=== PATIENT | female | born 1965 | race Caucasian/White ===

== ENCOUNTER 2018-02-04 22:55 | Emergency (ER) | payer OTHER ==
[2018-02-04] MEDS ORDERED: MORPHINE 4 MG/ML SYR ONE (23:33)
[2018-02-04] MEDS ORDERED: DEXAMETHASONE 4 MG/ML VIAL ONE (23:33)
[2018-02-04] MEDS ORDERED: ONDANSETRON 4 MG/2 ML VIAL ONE (23:34)
[2018-02-04] MEDS ORDERED: KETOROLAC 30 MG/ML INJ ONE (23:34)
[2018-02-05] MEDS ORDERED: DIAZEPAM 10 MG/2 ML INJ SYRINGE ONE (00:51)
--- NOTE | 2018-02-05 00:54 | EDPHYS ---
Physician Documentation [facility] Name: Nany Kelley Age: 52 yrs Sex: Female : 1965 Arrival Date: 02/04/2018 Time: 22:58 Bed 14 Private MD: Jeremiah Bhagat ED Physician Dom Rueda HPI: 02/04 23:18 This 52 yrs old Female presents to ER via Ambulatory with complaints of Back jmm Pain. 23:18 The patient presents with pain that is acute. The symptoms are located in the low back. jmm Onset: The symptoms/episode began/occurred acutely, just prior to arrival. The pain does not radiate. Associated signs and symptoms: Pertinent negatives: abdominal pain, dysuria, fever, hematuria, incontinence, nausea, numbness, tingling, urinary retention, vomiting, weakness. This is a 52 year old female with a history of htn that presents to the ED with lower back pain while sweeping earlier this evening. Denies leg weakness, incontinence, dysuria, fever, numbness of legs. . Historical: - Allergies: 23:09 PENICILLINS; wh - Home Meds: 23:09 atenolol 25 mg Oral tab 2 tabs 2 times per day [Active]; hydrochlorothiazide 25 mg Oral wh tab 1 tab once daily [Active]; - PMHx: 23:09 Hypertension; wh - Immunization history:: Adult Immunizations up to date. - Social history:: Smoking status: Patient uses tobacco products, unknown amount. - Ebola Screening: : Patient negative for fever greater than or equal to 101.5 degrees Fahrenheit, and additional compatible Ebola Virus Disease symptoms Patient denies exposure to infectious person. ROS: 23:18 Constitutional: Negative for fever, chills, and weight loss, Cardiovascular: Negative jmm for chest pain, palpitations, and edema, Respiratory: Negative for shortness of breath, cough, wheezing, and pleuritic chest pain, Abdomen/GI: Negative for abdominal pain, nausea, vomiting, diarrhea, and constipation. 23:18 Back: Positive for pain with movement. 23:18 All other systems are negative. Exam: 23:18 Head/Face: atraumatic. jmm 23:18 Eyes: EOMI, no conjunctival erythema appreciated ENT: Moist Mucus Membranes Neck: Trachea midline, Supple Chest/axilla: Normal chest wall appearance and motion. Cardiovascular: Regular rate and rhythm. No edema appreciated Respiratory: Normal respirations, no respiratory distress appreciated Abdomen/GI: Non distended, soft 23:18 Constitutional: The patient appears in no acute distress, alert, awake. 23:18 ENT: 23:18 Back: pain, that is moderate, ROM is painful, vertebral tenderness, is not appreciated. 23:18 Musculoskeletal/extremity: ROM: intact in all extremities. 23:18 Skin: Appearance: Color: normal in color. 23:18 Neuro: Orientation: is normal, Mentation: is normal, Memory: is normal. 23:18 Psych: Behavior/mood is pleasant, cooperative. Vital Signs: 23:07 BP 139 / 108; Pulse 86; Resp 18; Temp 98.1; Pulse Ox 98% on R/A; 02/05 00:33 BP 107 / 75; Pulse 82; Resp 16; Pulse Ox 98% on R/A; jb MDM: 02/04 23:15 Patient medically screened. [facility] 02/05 00:53 Data reviewed: vital signs, nurses notes, radiologic studies, plain films. Data [facility] interpreted: Pulse oximetry: on room air is 98 %. Interpretation: normal. Counseling: I had a detailed discussion with the patient and/or guardian regarding: the historical points, exam findings, and any diagnostic results supporting the discharge/admit diagnosis, lab results, radiology results, the need for outpatient follow up, to return to the emergency department if symptoms worsen or persist or if there are any questions or concerns that arise at home. Response to treatment: the patient's symptoms have markedly improved after treatment. 02/04 23:21 Order name: Lumbar Spine (3 Views) XRAY [facility] 02/04 23:13 Order name: Saline Lock; Complete Time: 23:21 [facility] Administered Medications: 02/04 23:38 Drug: Zofran 4 mg Route: IVP; Site: right antecubital; jb4 02/05 00:07 Follow up: Response: No adverse reaction; Nausea is decreased [facility] 02/04 23:40 Drug: morphine 4 mg Route: IVP; Site: right antecubital; jb4 02/05 00:08 Follow up: Response: No adverse reaction; Pain is decreased [facility] 02/04 23:41 Drug: Ketorolac 30 mg Route: IVP; Site: right antecubital; jb4 02/05 00:07 Follow up: Response: No adverse reaction; Pain is decreased jb4 02/04 23:42 Drug: Decadron - Dexamethasone 10 mg Route: IVP; Site: right antecubital; jb4 02/05 00:06 Follow up: Response: No adverse reaction jb4 00:54 Drug: Valium 2 mg Route: IVP; Site: right forearm; jb4 00:54 Follow up: Response: No adverse reaction; Pain is decreased jb4 Disposition: 05:40 Co-signature as Attending Physician, Dmo Rueda MD I agree with the assessment and tw4 plan of care. Disposition: 02/05/18 00:53 Discharged to Home. Impression: Sprain of ligaments of lumbar spine. - Condition is Stable. - Discharge Instructions: Back Pain, Adult. - Prescriptions for Ultracet 37.5- 325 mg Oral Tablet - take 1 tablet by ORAL route every 6 hours - for up to 5 days; do not exceed 8 tablets per day.; 12 tablet. Zanaflex 4 mg Oral Tablet - take 1 tablet by ORAL route every 8 hours As needed; 20 tablet. - Medication Reconciliation Form, Thank You Letter, Antibiotic Education, Prescription Opioid Use form. - Follow up: Private Physician; When: 2 - 3 days; Reason: Recheck today's complaints, Continuance of care, Re-evaluation by your physician. Signatures: Dispatcher [employer] EDMS Niko Omalley PA PA jmm Bryson, James, RN RN jb4 Hannah Garg Terrence, MD MD tw4 Corrections: (The following items were deleted from the chart) 00:59 00:53 02/05/2018 00:53 Discharged to Home. Impression: Sprain of ligaments of lumbar jb4 spine. Condition is Stable. Forms are Medication Reconciliation Form, Thank You Letter, Antibiotic Education, Prescription Opioid Use. Follow up: Private Physician; When: 2 - 3 days; Reason: Recheck today's complaints, Continuance of care, Re-evaluation by your physician. efren
--- NOTE | 2018-02-05 00:54 | ER ---
Nurse's Notes [facility] Name: Nany Kelley Age: 52 yrs Sex: Female : 1965 Arrival Date: 02/04/2018 Time: 22:58 Bed 14 Private MD: Jeremiah Bhagat Diagnosis: Sprain of ligaments of lumbar spine Presentation: 02/04 23:05 Presenting complaint: Patient states: states C/O back pain 12/26. Pt states she was wh sweeping the floor and turned the wrong way, and felt throbbing and stabbing pain to the lower back. Denies any tingling sensation, loss of sensations or ROM. Transition of care: patient was not received from another setting of care. Onset of symptoms was February 04, 2018. Risk Assessment: Do you want to hurt yourself or someone else? Patient reports no desire to harm self or others. Initial Sepsis Screen: Does the patient meet any 2 criteria? No. Patient's initial sepsis screen is negative. Does the patient have a suspected source of infection? No. Patient's initial sepsis screen is negative. Care prior to arrival: None. 23:05 Method Of Arrival: Ambulatory 23:05 Acuity: CARLOS 3 Historical: - Allergies: 23:09 PENICILLINS; - Home Meds: 23:09 atenolol 25 mg Oral tab 2 tabs 2 times per day [Active]; hydrochlorothiazide 25 mg Oral tab 1 tab once daily [Active]; - PMHx: 23:09 Hypertension; - Immunization history:: Adult Immunizations up to date. - Social history:: Smoking status: Patient uses tobacco products, unknown amount. - Ebola Screening: : Patient negative for fever greater than or equal to 101.5 degrees Fahrenheit, and additional compatible Ebola Virus Disease symptoms Patient denies exposure to infectious person. Screenin:07 Abuse screen: Denies threats or abuse. Denies injuries from another. Abuse screen: wh Denies threats or abuse. Denies injuries from another. Nutritional screening: No deficits noted. Tuberculosis screening: No symptoms or risk factors identified. Fall Risk Fall in past 12 months (25 points). Assessment: 23:04 General: Appears in no apparent distress. comfortable, Behavior is calm, cooperative, jb4 appropriate for age. Pain: Complains of pain in low back area Pain does not radiate. Pain currently is 10 out of 10 on a pain scale. Quality of pain is described as stabbing, throbbing. Neuro: Level of Consciousness is awake, alert, obeys commands, Oriented to person, place, time, situation. Cardiovascular: Patient's skin is warm and dry. Respiratory: Airway is patent Respiratory effort is even, unlabored, Respiratory pattern is regular, symmetrical. GI: No signs and/or symptoms were reported involving the gastrointestinal system. : No signs and/or symptoms were reported regarding the genitourinary system. EENT: No signs and/or symptoms were reported regarding the EENT system. Derm: Skin is intact, Skin is pink, warm \T\ dry. Musculoskeletal: Circulation, motion, and sensation intact. Reports pain in low back area Denies denies numbness or weakness. 02/05 00:33 Reassessment: Patient appears in no apparent distress at this time. Patient and/or jb4 family updated on plan of care and expected duration. Pain level reassessed. Patient is alert, oriented x 3, equal unlabored respirations, skin warm/dry/pink. Vital Signs: 02/04 23:07 BP 139 / 108; Pulse 86; Resp 18; Temp 98.1; Pulse Ox 98% on R/A; 02/05 00:33 BP 107 / 75; Pulse 82; Resp 16; Pulse Ox 98% on R/A; jb4 ED Course: 02/04 22:58 Patient arrived in ED. am2 22:59 Jeremiah Bhagat is Private Physician. am2 22:59 Jamie Wasserman, RN is Primary Nurse. [facility] 23:06 Niko Omalley PA is PHCP. [facility] 23:06 Dom Rueda MD is Attending Physician. [facility] 23:07 Triage completed. 23:07 Arm band placed on right wrist. 23:09 Patient has correct armband on for positive identification. Bed in low position. Call light in reach. Side rails up X 1. Pulse ox on. NIBP on. 23:10 Initial lab(s) drawn, by me. Inserted saline lock: 20 gauge in right forearm, using jb4 aseptic technique. Blood collected. 23:56 Patient moved to radiology via wheelchair. az 23:56 X-ray completed. Patient tolerated procedure well. az 23:56 Patient moved back from radiology. az 02/05 00:57 No provider procedures requiring assistance completed. IV discontinued, intact, jb4 bleeding controlled. Administered Medications: 02/04 23:38 Drug: Zofran 4 mg Route: IVP; Site: right antecubital; jb4 02/05 00:07 Follow up: Response: No adverse reaction; Nausea is decreased jb4 02/04 23:40 Drug: morphine 4 mg Route: IVP; Site: right antecubital; jb4 02/05 00:08 Follow up: Response: No adverse reaction; Pain is decreased jb4 02/04 23:41 Drug: Ketorolac 30 mg Route: IVP; Site: right antecubital; jb4 02/05 00:07 Follow up: Response: No adverse reaction; Pain is decreased jb4 02/04 23:42 Drug: Decadron - Dexamethasone 10 mg Route: IVP; Site: right antecubital; jb4 02/05 00:06 Follow up: Response: No adverse reaction jb4 00:54 Drug: Valium 2 mg Route: IVP; Site: right forearm; jb4 00:54 Follow up: Response: No adverse reaction; Pain is decreased jb4 Outcome: 00:53 Discharge ordered by . efren 00:58 Discharged to home ambulatory. jb4 00:58 Condition: stable 00:58 Discharge instructions given to patient, family, Instructed on discharge instructions, follow up and referral plans. medication usage, Demonstrated understanding of instructions, follow-up care, medications, Prescriptions given X 2. 00:59 Patient left the ED. jb4 Signatures: Niko Omalley PA PA jmm Bryson, James, RODNEY RN jb4 Brenda Maloney Hannah Abreu Emma Mcgarry [place] Corrections: (The following items were deleted from the chart) 00:38 00:33 BP 98 / 72; Pulse 82bpm; Resp 16bpm; Pulse Ox 98% RA; jb4 jb4 00:47 02/04 23:05 Acuity: CARLOS 4 [facility]
--- NOTE | 2018-02-05 08:39 | RAD REPORT ---
EXAM DESCRIPTION: RAD - Lumbar Spine 3 Views - 02/05/2018 12:00 am CLINICAL HISTORY: low back pain Radiculopathy COMPARISON: No comparisons FINDINGS: Vertebral body heights appear maintained. No compression fracture noted. Disc spaces are m aintained. No spondylolysis or spondylolisthesis. Aortic atherosclerosis. IMPRESSION: No acute process identified.
== END 2018-02-05 00:59 | disposition home or self-care (01) ==
LOC: ER 22:55
DX: S33.5XXA Sprain of ligaments of lumbar spine, initial encounter (principal); I10 Essential (primary) hypertension; Z72.0 Tobacco use; Z88.0 Allergy status to penicillin
CPT/HCPCS: 72100; 99284; J2405; J3360

== ENCOUNTER 2022-11-28 11:08 | Observation (INO) | payer OTHER ==
--- OUTSIDE RECORDS SUMMARY | 2022-11-28 11:12 | XMS REPORT | Continuity of Care Document ---
:1965 Author Organization [facility] t Address [address] [place] [address] Care Team Providers Name Role Phone Oral Yarbrough MD Primary Care Physician Marivel Cunningham Attending Clinician Unavailable ABHISHEK GRIMALDO Attending Clinician Unavailable MD ABHISHEK GRIMALDO Attending Clinician Unavailable ABHISHEK GRIMALDO Admitting Clinician Unavailable MD ABHISHEK GRIMALDO Admitting Clinician Unavailable Problems Condition Condition Condition Status Onset Resolution Last Treating Co mments Source Name Details Category Date Date Treatment Clinician Date Cervical Cervical Disease Active 2019- [facility] di radiculopa radiculopa 0-29 st thy at C8 thy at C8 00:00: Hosp josé miguel 00 l Carpal Carpal Disease Active 2020-0 Methodi tunnel tunnel 3-20 st syndrome syndrome 00:00: Hospit a on right on right 00 l 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 3- st 00:00: Hospita 00 l Fixation Fixation Disease Active 2020-0 Metho di hardware hardware 3-05 st in spine in spine 00:00: Hospit a 00 l Cervical Cervical Disease Active 2020-0 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 00:00: Hospita myelopathy myelopathy 00 l Supraclavi Supraclavi Disease Active 2020-0 M ethodi cular cular 3-05 st fossa fossa 00:00: Hospita fullness fullness 00 l Essential Essential Problem Com mon hypertensi (primary) Spi rit on hypertensi - [facility] Gastro-eso Gastro-eso Problem C ommon phageal phageal Spirit reflux reflux [facility] Depression Depression Problem C ommon Spirit [facility] [id number] Breast Problem Common implant Spirit status - [facility] [id number] Primary Problem Common insomnia [facility] [id number] Encounter Problem Com mon for [facility] screening [facility] mammogram [facility] malignant Medical neoplasm Center of breast Allergies, Adverse Reactions, Alerts Allergy Allergy Status Severity Reaction(s) Onset Inactive Treating Comm ents Source Name Type Date Date Clinician Penicill Propensi Active Unknown Metho di ins ty to Reaction 05-20 adverse 00:00: Hospita reaction 00 l s to drug Penicill Propensi Active Unknown Meth[facility] di ins ty to Reaction 05-20 adverse 00:00: Hospita reaction 00 l s to drug penicill penicill Active rash Common in G in G [facility] Family History Family Member Diagnosis Comments Start Date Stop Date Source Natural father Arthritis [facility] Natural mother [facility] illness [facility] Social History Social Habit Start Date Stop Date Quantity Comments Source Gender identity [facility] Sexual orientation [facility] History of Tobacco Current Smoker Co mmon Spirit - Use [facility] History SDOH [facility] Alcohol Frequency Hospita l History SDOH [facility] Alcohol Std Drinks Hospit al History SDOH [facility] Alcohol [facility] History of Social 2022-05-25 2022-05-[address] function 00:00:00 00:00:00 Hospital Alcohol intake 2019-08-06 2019-08-06 Current drinker [facility] dist 00:00:00 00:00:00 of alcohol Hospital (finding) Cigarettes smoked 2019-07-31 2019-07-[address] current (pack per 00:00:00 00:00:00 Hospita l day) - Reported Cigarette 2019-07-31 2019-07-31 [facility] pack-years 00:00:00 00:00:00 Hospital Tobacco use and 2019-07-31 2019-07-31 Smokeless [facility] exposure 00:00:00 00:00:00 tobacco non-user Hospital Alcohol Comment 2019-05-21 2019-05-21 socially [facility] 00:00:00 [facility]:00 Hospital Sex Assigned At [birth year] [facility] 00:[facility] Smoking Status Start Date Stop Date Source Current Smoker 2022-03-24 00:00:00 Common Spir t - [facility] Occasional tobacco smoker 2019-07-31 00:00:00 [facility] Medications Ordered Filled Start Stop Current Ordering Indication Dosage Frequency Signature Comments Components Source Medication Medication Date Date Medication? Clinician (SIG) Name Name atenoloL 2020-0 Yes 25mg Q.5D Take 25 mg Met hodi (TENORMIN) 5-[address] 25 MG 10:57: (two) Hospita tablet 34 times a l day. acetaminoph 2020-0 Yes Take by Met hodi en with 5-[address] codeine 10:57: Hospita (TYLENOL-CO 34 l DEINE #3 ORAL) atenoloL 2020-0 Yes 25mg Q.5D Take 25 mg Met hodi (TENORMIN) 5-[address] 25 MG 10:57: (two) Hospita tablet 34 times a l day. acetaminoph 2020-0 Yes Take by Met hodi en with 5-[address] codeine 10:57: Hospita (TYLENOL-CO 34 l DEINE #3 ORAL) hydroCHLORO 2020-0 Yes Method i thiazide 2-18 st (HYDRODIURI 00:00: Hospit a L) 12.5 MG 00 l tablet hydroCHLORO 2020-0 Yes Method i thiazide 2-18 st (HYDRODIURI 00:00: Hospit a L) 12.5 MG 00 l tablet DULoxetine 2020-0 Yes Methodi (CYMBALTA) 2-17 st 60 MG 00:00: Hospita capsule 00 l DULoxetine 2020-0 Yes [facility] (CYMBALTA) 2-17 st 60 MG 00:00: Hospita capsule 00 l pantoprazol 2020-0 Yes Method i e 2-10 st (PROTONIX) 00:00: Hospita 40 MG EC 00 l tablet pantoprazol 2020-0 Yes Method i e 2-10 st (PROTONIX) 00:00: Hospita 40 MG EC 00 l tablet Atenolol 25 Atenolol 25 No 1{table QD Atenolol MG MG t} 25 MG hydroCHLORO hydroCHLORO No QD hydroCHLOR thiazide thiazide Othiazide 12.5 mg 12.5 mg 12.5 mg Pantoprazol Pantoprazol No Pantoprazo e Sodium 40 e Sodium 40 le Sodium mg mg 40 mg Estradiol Estradiol No 1{table QD Estradiol 0.5 MG 0.5 MG t} 0.5 MG Benlysta Benlysta No 1{ml} Benlysta 200 MG/ML 200 MG/ML 200 MG/ML DULoxetine DULoxetine No DULoxetine HCl 60 mg HCl 60 mg HCl 60 mg Vital Signs Vital Name Observation Time Observation Value Comments Source height 2022-03-27 14:20:00 66 [in_i] [facility] weight 2022-03-27 14:20:00 162 [lb_av] [facility] temperature 2022-03-27 14:20:00 98.0 [degF] [facility] bmi 2022-03-27 14:20:00 26.14 kg/m2 [facility] oximetry 2022-03-27 14:20:00 98 % [facility] respiratory rate 2022-03-27 14:20:00 16 /min Comm on [facility] blood pressure 2022-03-27 14:20:00 118 mm[Hg] [facility] - systolic [facility] blood pressure 2022-03-27 14:20:00 72 mm[Hg] [facility] diastolic [facility] Procedures This patient has no known procedures. Plan of Care Planned Activity Planned Date Details Comments Source Future Scheduled 2022-11-20 Pneumococcal Vaccine: [facility] Test 23:26:19 Pediatrics (0 to 5 Years) and At-Risk Patients (6 to 64 Years) (1 - PCV) [code = Pneumococcal Vaccine: Pediatrics (0 to 5 Years) and At-Risk Patients (6 to 64 Years) (1 - PCV)] Future Scheduled 2022-11-20 Hepatitis C screening [facility] Test 23:26:19 (procedure) [code = 056224888] Future Scheduled 2022-11-[address] [facility] Test 23:26:19 malignant neoplasm of cervix (procedure) [code = 855550416] Future Scheduled 2022-11-[address] [facility] Test 23:26:19 SCREENING [code = BREAST CANCER SCREENING] Future Scheduled 2022-11-20 Screening for [facility] Test 23:26:19 malignant neoplasm of colon (procedure) [code = 940257477] Future Scheduled 2022-11-20 Screening for [facility] Test 23:26:19 malignant neoplasm of colon (procedure) [code = 350080125] Future Scheduled 2022-11-20 SHINGLES VACCINES ([address] [facility] Test 23:26:19 of 2) [code = SHINGLES VACCINES (1 of 2)] Future Scheduled 2022-11-20 INFLUENZA VACCINE (#1) M [facility] Test 23:26:19 [code = INFLUENZA VACCINE (#1)] Future Scheduled 2022-11-20 Screening for [facility] Test 23:26:19 malignant neoplasm of colon (procedure) [code = 883833496] Future Scheduled 2022-11-20 Screening for [facility] Test 23:26:19 malignant neoplasm of colon (procedure) [code = 080517468] Future Scheduled 2022-11-20 Screening for [facility] Test 23:26:19 malignant neoplasm of colon (procedure) [code = 687000663] Future Scheduled 2022-11-20 COVID-19 VACCINE (#1) [facility] Test 23:26:19 [code = COVID-19 VACCINE (#1)] Future Scheduled 2021-04-19 COVID-19 VACCINE (1) Met [facility] Hospital Test 23:41:12 [code = COVID-19 VACCINE (1)] Future Scheduled 2021-04-19 Hepatitis C screening [facility] Hospital Test 23:41:12 (procedure) [code = 769745336] Future Scheduled 2021-04-19 Screening for [facility] Test 23:41:12 malignant neoplasm of cervix (procedure) [code = 590166742] Future Scheduled 2021-04-19 BREAST CANCER [facility] Test 23:41:12 SCREENING [code = BREAST CANCER SCREENING] Future Scheduled 2021-04-19 COLONOSCOPY SCREENING [facility] Test 23:41:12 [code = COLONOSCOPY SCREENING] Future Scheduled 2021-04-19 SHINGLES VACCINES (#1) [facility] Test 23:41:12 [code = SHINGLES VACCINES (#1)] Future Scheduled 2021-04-19 INFLUENZA VACCINE [facility] Test 23:41:12 [code = INFLUENZA VACCINE] Encounters Start End Encounter Admission Attending Care Care Encounter Source Date/Time Date/Time Type Type Clinicians Facility Department ID 2022-11-17 Outpatient Octavio STSANTA [facility] [id number] Common 09:40:00 Marivel [id number] [facility] 2022-06-13 Outpatient Octavio [facility] [id number] Common 09:40:02 Marivel [id number] [facility] 2022-03-27 Outpatient Octavio [facility] [id number] Common 13:57:03 Marivel [id number] [facility] 2022-03-27 2022-03-27 OFFICE [facility] [id number] Co mmon 00:00:00 00:00:00 VISIT [facility] LEVEL 4 [facility] 2020-01-15 2020-01-15 Outpatient [facility] [id number] [place] 00:00:00 00:00:00 ABHISHEK 125 Method i 2019-10-23 2019-10-23 Outpatient [facility] PDPFEIM SPT COH 00:00:00 00:00:00 [id number] 2019-08-18 2019-08-18 Outpatient [facility] [id number] [place] 00:00:00 00:00:00 ABHISHEK 851 Method i 2019-08-05 2019-08-05 [place] [id number] [place] 00:00:00 00:00:00 ABHISHEK 408 Method i 2019-08-01 2019-08-01 Outpatient [facility] [id number] [place] 00:00:00 00:00:00 ABHISHEK [address] 2019-06-06 2019-06-06 Outpatient [facility] [id number] [place] 00:00:00 00:00:00 ABHISHEK [address] 2019-05-22 2019-05-22 Outpatient [facility] [id number] [place] 00:00:00 00:00:00 ABHISHEK 485 Method i 2019-05-22 2019-05-22 Outpatient [facility] [id number] [place] 00:00:00 00:00:00 ABHISHEK [address] 2019-05-22 2019-05-22 Outpatient GRIMALDO, [facility] [id number] [place] 00:00:00 00:00:00 ABHISHEK [address] 2019-05-22 2019-05-22 Outpatient GRIMALDO, [facility] [id number] [place] 00:00:00 00:00:00 ABHISHEK [address] 2019-05-22 2019-05-22 Outpatient GRIMALDO, [facility] [id number] [place] 00:00:00 00:00:00 ABHISHEK [address] 2019-05-22 2019-05-22 Outpatient GRIMALDO, [facility] [id number] [place] 00:00:00 00:00:00 ABHISHEK 453 Method i 2019-05-22 2019-05-22 Outpatient GRIMALDO, [facility] [id number] [place] 00:00:00 00:00:00 ABHISHEK [address] 2019-05-22 2019-05-22 Outpatient GRIMALDO, [facility] [id number] [place] 00:00:00 00:00:00 ABHISHEK [address] 2019-05-22 2019-05-22 Outpatient GRIMALDO, [facility] [id number] [place] 00:00:00 00:00:00 ABHISHEK 459 Method i 2019-05-22 2019-05-22 Outpatient GRIMALDO, [facility] [id number] [place] 00:00:00 00:00:00 ABHISHEK [address] Results Test Description Test Time Test Comments Results Result Comments Source SARS coronavirus 2 RNA [Presence] in Respiratory speci men by 2019-08-01 17:44:46 DOM with probe detection Test Item Value Reference Range Interpretation Comme nts SARS coronavirus 2 RNA [Presence] in Respiratory Not detected Not-D etected specimen by DOM with probe detection (test code = 49570-0) RAKAN MARINELLI WHITT
[2022-11-28] MEDS ORDERED: NA CHLORIDE 0.9% 1,000 ML ONE (11:52)
[2022-11-28] MEDS ORDERED: ASPIRIN 81 MG CHEWABLE TABLET ONE (11:52)
[2022-11-28 11:56] LABS: Hematocrit 43.9 % (36.0-45.0); Lymphocytes % 22.9 % (15.3-44.8); MCV 89.6 fL (80-100); MPV 9.3 fL (7.6-11.3); Platelets 241 thou/uL (152-406)
[2022-11-28 11:57] LABS: Protime INR 0.96
[2022-11-28 12:10] LABS: Albumin 3.5 g/dL (3.4-5.0); Bilirubin Direct 0.1 mg/dL (0-0.2); Bilirubin Indirect, Calculated 0.5 mg/dL (0.2-0.8); Bilirubin Total 0.6 mg/dL (0.2-1.0); Magnesium 2.2 mg/dL (1.6-2.4); Potassium 3.9 mEq/L (3.5-5.1); Protein, Total 7.3 g/dL (6.4-8.2); Troponin High Sensitivity 3.7 pg/mL (<58.9)
--- NOTE | 2022-11-28 12:17 | ER ---
Nurse's Notes [facility] Name: Nany Kelley Age: 57 yrs Sex: Female : 1965 Arrival Date: 11/28/2022 Time: 11:08 Bed 16 Private MD: Diagnosis: Chest pain, unspecified;Dyspnea;Palpitations;Tobacco abuse counseling;Tobacco use Presentation: 11/28 11:23 Chief complaint: Patient states: she started having chest pain this morning with chest ap3 tightness, then started having palpitations prior to her arrival to the ED. Coronavirus screen: At this time, the client does not indicate any symptoms associated with coronavirus-19. Ebola Screen: No symptoms or risks identified at this time. Initial Sepsis Screen: Does the patient meet any 2 criteria? No. Patient's initial sepsis screen is negative. Does the patient have a suspected source of infection? No. Patient's initial sepsis screen is negative. Risk Assessment: Do you want to hurt yourself or someone else? Patient reports no desire to harm self or others. Onset of symptoms was November 28, 2022. 11:23 Method Of Arrival: Ambulatory ap3 11:23 Acuity: CARLOS 2 ap3 Triage Assessment: 11:25 General: Appears in no apparent distress. Behavior is calm, cooperative, appropriate ap3 for age. Pain: Complains of pain in chest Pain does not radiate. Pain currently is 6 out of 10 on a pain scale. Neuro: Level of Consciousness is awake, alert, obeys commands, Oriented to person, place, time, situation. Cardiovascular: Reports chest pain. Respiratory: Airway is patent Respiratory effort is even, unlabored, Respiratory pattern is regular, symmetrical. Historical: - Allergies: 11:24 PENICILLINS; ap3 - Home Meds: 11:24 atenolol Oral [Active]; hydrochlorothiazide Oral [Active]; ap3 12:14 injection once a week for lupus [Active]; Cymbalta oral [Active]; Protonix Oral aa5 [Active]; - PMHx: 11:24 Hypertension; Lupus erythematosus; ap3 12:14 Depressive disorder; acid reflux; aa5 - Immunization history:: Client reports receiving the 2nd dose of the Covid vaccine. - Social history:: Smoking status: Patient reports the use of cigarette tobacco products, smokes one pack cigarettes per day. - Family history:: not pertinent. Screenin:26 [facility] ED Fall Risk Assessment (Adult) History of falling in the last 3 months, ap3 including since admission No falls in past 3 months (0 pts). Abuse screen: Denies threats or abuse. Nutritional screening: No deficits noted. Tuberculosis screening: No symptoms or risk factors identified. Assessment: 11:27 Pain: Pain began gradually. ap3 11:30 General: Appears comfortable, Behavior is calm, cooperative. Pain: Complains of pain in aa5 mid-sternal area Pain does not radiate. Pain currently is 4 out of 10 on a pain scale. Quality of pain is described as pressure, Pain began gradually, Is continuous. Neuro: Level of Consciousness is awake, alert, obeys commands, Oriented to person, place, time, situation. Cardiovascular: Reports chest pain, palpitations, Denies diaphoresis, lightheadedness, vomiting, Heart tones S1 S2 present Rhythm is sinus rhythm. Respiratory: Reports SOB at times Airway is patent Respiratory effort is even, unlabored, Respiratory pattern is regular, symmetrical, Breath sounds are clear bilaterally. GI: Abdomen is round non-distended, Bowel sounds present X 4 quads. Abd is soft and non tender X 4 quads. Patient currently denies diarrhea, nausea, vomiting. : No signs and/or symptoms were reported regarding the genitourinary system. EENT: No signs and/or symptoms were reported regarding the EENT system. Derm: Skin is pink, warm \T\ dry. Musculoskeletal: Range of motion: intact in all extremities. 12:28 Reassessment: Patient and/or family updated on plan of care and expected duration. Pain aa5 level reassessed. Patient is alert, oriented x 3, equal unlabored respirations, skin warm/dry/pink. 13:29 Reassessment: Spoke to ani (2nd floor) and states Shagufta will call me back for report. . aa5 13:30 Reassessment: Patient is alert, oriented x 3, equal unlabored respirations, skin aa5 warm/dry/pink. 13:42 Reassessment: Patient is alert, oriented x 3, equal unlabored respirations, skin aa5 warm/dry/pink. Vital Signs: 11:23 BP 179 / 93; Pulse 66; Resp 18; Temp 98.4; Pulse Ox 100% ; Weight 76.2 kg; Pain 6/10; ap3 12:09 BP 132 / 93; Pulse 62; Resp 16 S; Pulse Ox 97% on R/A; aa5 13:30 BP 134 / 90; Pulse 63; Resp 16 S; Pulse Ox 98% on R/A; aa5 11:23 Pain Scale: Adult ap3 ED Course: 11:13 Patient arrived in ED. mg5 11:19 Jacques Townsend MD is Attending Physician. veronica 11:19 Evita Roque, RODNEY is Primary Nurse. aa5 11:24 Triage completed. ap3 11:26 Arm band placed on right wrist. ap3 11:26 Patient maintains SpO2 saturation greater than 95% on room air. ap3 11:27 Patient has correct armband on for positive identification. Placed in gown. Bed in low ap3 position. Call light in reach. Side rails up X 1. Adult w/ patient. personnel monitor on. Pulse ox on. NIBP on. 11:35 Initial lab(s) drawn, by me, sent to lab. Inserted saline lock: 20 gauge in left aa5 antecubital area, using aseptic technique. Blood collected. 12:15 Peter Lemus MD is Hospitalizing Provider. veronica 12:21 XRAY Chest (1 view) In Process Unspecified. EDMS 13:42 No provider procedures requiring assistance completed. Patient admitted, IV remains in aa5 place. Administered Medications: 11:40 Drug: Aspirin PO Chewable Tablet 162 mg Route: PO; aa5 13:30 Follow up: Response: No adverse reaction aa5 11:40 Drug: NS 0.9% IV 1000 ml Route: IV; Rate: 125 ml/hr; Site: left antecubital; aa5 13:30 Follow up: IV Status: Infusion continued upon admission aa5 12:15 Drug: Famotidine IVP 20 mg Route: IVP; Site: left antecubital; rs5 13:30 Follow up: Response: No adverse reaction aa5 12:15 Drug: Enoxaparin Sub-Q 1 mg/kg Route: Sub-Q; Site: left lower abdomen; rs5 13:30 Follow up: Response: No adverse reaction aa5 12:30 Drug: Lisinopril PO 20 mg Route: PO; rs5 13:30 Follow up: Response: No adverse reaction aa5 Medication: 11:26 VIS not applicable for this client. ap3 Outcome: 12:16 Decision to Hospitalize by Provider. veronica 13:42 Admitted to Tele accompanied by tech, family with patient, via wheelchair, with chart, aa5 Report called to RODNEY Eagle 13:42 Condition: stable 13:42 Instructed on the need for admit, Demonstrated understanding of instructions. 13:56 Patient left the ED. aa5 Signatures: Dispatcher [employer] EDWV Jacques Townsend MD MD cha Calderon, Audri RN RN aa5 Brenda Martinez RN RN ap3 Ahsan Maurice RN RN rs5 Li Pollock mg5
--- NOTE | 2022-11-28 12:17 | EDPHYS ---
Physician Documentation [facility] Name: Nany Kelley Age: 57 yrs Sex: Female : 1965 Arrival Date: 11/28/2022 Time: 11:08 Bed 16 Private MD: SHANIQUE Physician Jacques Townsend HPI: 11/28 12:00 This 57 yrs old Female presents to ER via Ambulatory with complaints of Chest veronica Pain. 12:00 The patient or guardian reports chest pain that is located primarily in the anterior veronica chest wall, bilaterally. Onset: just prior to arrival, this morning. The pain does not radiate. Associated signs and symptoms: Pertinent positives: shortness of breath. The chest pain is described as a pressure, squeezing. Duration: The patient or guardian reports multiple episodes, with no pattern. Modifying factors: The symptoms are alleviated by nothing. the symptoms are aggravated by nothing. Severity of pain: At its worst the pain was moderate in the emergency department the pain has improved moderately. The patient has not experienced similar symptoms in the past. Historical: - Allergies: 11:24 PENICILLINS; ap3 - Home Meds: 11:24 atenolol Oral [Active]; hydrochlorothiazide Oral [Active]; ap3 12:14 injection once a week for lupus [Active]; Cymbalta oral [Active]; Protonix Oral aa5 [Active]; - PMHx: 11:24 Hypertension; Lupus erythematosus; ap3 12:14 Depressive disorder; acid reflux; aa5 - Immunization history:: Client reports receiving the 2nd dose of the Covid vaccine. - Social history:: Smoking status: Patient reports the use of cigarette tobacco products, smokes one pack cigarettes per day. - Family history:: not pertinent. ROS: 12:00 Constitutional: Negative for fever, chills, and weight loss, Eyes: Negative for injury, veronica pain, redness, and discharge, ENT: Negative for injury, pain, and discharge, Neck: Negative for injury, pain, and swelling, Abdomen/GI: Negative for abdominal pain, nausea, vomiting, diarrhea, and constipation, Back: Negative for injury and pain, : Negative for injury, bleeding, discharge, and swelling, MS/Extremity: Negative for injury and deformity, Skin: Negative for injury, rash, and discoloration, Neuro: Negative for headache, weakness, numbness, tingling, and seizure, Psych: Negative for depression, anxiety, suicide ideation, homicidal ideation, and hallucinations, Allergy/Immunology: Negative for hives, rash, and allergies, Endocrine: Negative for neck swelling, polydipsia, polyuria, polyphagia, and marked weight changes, Hematologic/Lymphatic: Negative for swollen nodes, abnormal bleeding, and unusual bruising. 12:00 Cardiovascular: Positive for chest pain, of the chest. 12:00 Respiratory: Positive for shortness of breath, at rest. Exam: 12:00 Constitutional: This is a well developed, well nourished patient who is awake, alert, veronica and in no acute distress. Head/Face: Normocephalic, atraumatic. Eyes: Pupils equal round and reactive to light, extra-ocular motions intact. Lids and lashes normal. Conjunctiva and sclera are non-icteric and not injected. Cornea within normal limits. Periorbital areas with no swelling, redness, or edema. ENT: Nares patent. No nasal discharge, no septal abnormalities noted. Tympanic membranes are normal and external auditory canals are clear. Oropharynx with no redness, swelling, or masses, exudates, or evidence of obstruction, uvula midline. Mucous membranes moist. Neck: Trachea midline, no thyromegaly or masses palpated, and no cervical lymphadenopathy. Supple, full range of motion without nuchal rigidity, or vertebral point tenderness. No Meningismus. Chest/axilla: Normal chest wall appearance and motion. Nontender with no deformity. No lesions are appreciated. Cardiovascular: Regular rate and rhythm with a normal S1 and S2. No gallops, murmurs, or rubs. Normal PMI, no JVD. No pulse deficits. Respiratory: Lungs have equal breath sounds bilaterally, clear to auscultation and percussion. No rales, rhonchi or wheezes noted. No increased work of breathing, no retractions or nasal flaring. Abdomen/GI: Soft, non-tender, with normal bowel sounds. No distension or tympany. No guarding or rebound. No evidence of tenderness throughout. Back: No spinal tenderness. No costovertebral tenderness. Full range of motion. Female : Normal external genitalia. Skin: Warm, dry with normal turgor. Normal color with no rashes, no lesions, and no evidence of cellulitis. MS/ Extremity: Pulses equal, no cyanosis. Neurovascular intact. Full, normal range of motion. Neuro: Awake and alert, GCS 15, oriented to person, place, time, and situation. Cranial nerves II-XII grossly intact. Motor strength 5/5 in all extremities. Sensory grossly intact. Cerebellar exam normal. Normal gait. Psych: Awake, alert, with orientation to person, place and time. Behavior, mood, and affect are within normal limits. 12:00 ECG was reviewed by the Attending Physician. Vital Signs: 11:23 BP 179 / 93; Pulse 66; Resp 18; Temp 98.4; Pulse Ox 100% ; Weight 76.2 kg; Pain 6/10; ap3 12:09 BP 132 / 93; Pulse 62; Resp 16 S; Pulse Ox 97% on R/A; aa5 13:30 BP 134 / 90; Pulse 63; Resp 16 S; Pulse Ox 98% on R/A; aa5 11:23 Pain Scale: Adult ap3 MDM: 11:19 Patient medically screened. veronica 12:05 Differential diagnosis: abnormal EKG, acute myocardial infarction, acute pericarditis, veronica anxiety, chest wall pain, costochondritis, esophagitis, hiatal hernia, pancreatitis, peptic ulcer disease, pericarditis, pleurisy, pneumonia, pulmonary embolus, stable angina, thoracic aortic disection, unstable angina. HEART Score: History: Moderately Suspicious (1), ECG: Normal (0), Age: > 45 and < 65 years (1), Risk Factors: 1 or 2 risk factors (1), [Hypertension] [Obesity] Troponin: < or = 1 x Normal Limit (0). The patient was given aspirin in the Emergency Department. ROBERTA Risk Score: TOTAL SCORE = 0. Data reviewed: vital signs, nurses notes, lab test result(s), EKG, radiologic studies, plain films. Consideration of Admission/Observation Patient was admitted/placed on observation. Escalation of care including admission/observation considered. I considered the following discharge prescriptions or medication management in the emergency department Medications were administered in the Emergency Department. See MAR. Test considered but Not performed: CT: no ct chest ro pe. 11/28 11:20 Order name: Basic Metabolic Panel; Complete Time: 12:11 veronica 11/28 11:20 Order name: CBC with Diff; Complete Time: 12:07 [facility] 11/28 11:20 Order name: LFT's; Complete Time: 12:11 [facility] 11/28 11:20 Order name: Magnesium; Complete Time: 12:11 [facility] 11/28 11:20 Order name: NT PRO-BNP; Complete Time: 12:11 [facility] 11/28 11:20 Order name: PT-INR; Complete Time: 12:07 [facility] 11/28 11:20 Order name: Troponin HS; Complete Time: 12:11 [facility] 11/28 11:20 Order name: Lipase; Complete Time: 12:11 [facility] 11/28 11:20 Order name: Urinalysis w/ reflexes [facility] 11/28 12:05 Order name: LAB Add On bd 11/28 12:12 Order name: Thyroid Stimulating Hormone; Complete Time: 13:08 [facility] 11/28 12:12 Order name: TSH [facility] 11/28 13:11 Order name: Magnesium [facility] 11/28 13:11 Order name: Phosphorus [facility] 11/28 13:11 Order name: T4 Free [facility] 11/28 13:11 Order name: Urinalysis w/ reflexes [facility] 11/28 13:11 Order name: Basic Metabolic Panel [facility] 11/28 13:11 Order name: Basic Metabolic Panel [facility] 11/28 13:11 Order name: CBC with Automated Diff [facility] 11/28 13:11 Order name: CBC with Automated Diff [facility] 11/28 13:11 Order name: Lipid Profile [facility] 11/28 13:11 Order name: Lipid Profile [facility] 11/28 13:13 Order name: Troponin High Sensitivity [facility] 11/28 13:13 Order name: Troponin High Sensitivity [facility] 11/28 13:13 Order name: Troponin High Sensitivity [facility] 11/28 13:14 Order name: Hemoglobin A1c [facility] 11/28 11:20 Order name: XRAY Chest (1 view); Complete Time: 13:08 [facility] 11/28 13:13 Order name: Echo with Doppler [facility] 11/28 11:20 Order name: EKG; Complete Time: 11:21 [facility] 11/28 13:07 Order name: CONS Physician Consult [facility] 11/28 13:11 Order name: Heart Healthy [facility] 11/28 11:20 Order name: Cardiac monitoring; Complete Time: 11:39 [facility] 11/28 11:20 Order name: EKG - Nurse/Tech; Complete Time: 11:39 [facility] 11/28 11:20 Order name: IV Saline Lock; Complete Time: :39 [facility] 11/28 11:20 Order name: Labs collected and sent; Complete Time: 39 [facility] 11/28 11:20 Order name: O2 Per Protocol; Complete Time: [facility] 11/28 11:20 Order name: O2 Sat Monitoring; Complete Time: :39 [facility] EC:00 Rate is 62 beats/min. Rhythm is regular. QRS [place] is Normal. [place] interval is normal. QRS veronica interval is normal. QT interval is normal. No Q waves. T waves are Normal. No ST changes noted. Clinical impression: Normal ECG and No evidence of ischemia. Interpreted by me. Reviewed by me. Administered Medications: 11:40 Drug: Aspirin PO Chewable Tablet 162 mg Route: PO; aa5 13:30 Follow up: Response: No adverse reaction aa5 11:40 Drug: NS 0.9% IV 1000 ml Route: IV; Rate: 125 ml/hr; Site: left antecubital; aa5 13:30 Follow up: IV Status: Infusion continued upon admission aa5 12:15 Drug: Famotidine IVP 20 mg Route: IVP; Site: left antecubital; rs5 13:30 Follow up: Response: No adverse reaction aa5 12:15 Drug: Enoxaparin Sub-Q 1 mg/kg Route: Sub-Q; Site: left lower abdomen; rs5 13:30 Follow up: Response: No adverse reaction aa5 12:30 Drug: Lisinopril PO 20 mg Route: PO; rs5 13:30 Follow up: Response: No adverse reaction aa5 Disposition Summary: 11/28/22 12:16 Hospitalization Ordered Hospitalization Status: Observation veronica Provider: Peter Lemus cha Location: Telemetry/MedSurg (observation) veronica Condition: Stable veronica Problem: new veronica Symptoms: have improved veronica Bed/Room Type: Standard veronica Room Assignment: 205(11/28/22 13:10) bd Diagnosis - Chest pain, unspecified veronica - Dyspnea veronica - Palpitations veronica - Tobacco abuse counseling veronica - Tobacco use veronica Forms: - Medication Reconciliation Form veronica - SBAR form veronica - Leadership Thank You Letter veronica Signatures: Dispatcher [employer] EDMS Tiffany Sanchez Corey, MD MD cha Calderon, Audri RN RN aa5 Brenda Martinez RN RN ap3 Ahsan Maurice, RN RN rs5 Corrections: (The following items were deleted from the chart) 13:10 12:16 veronica yaneth
[2022-11-28] MEDS ORDERED: lisinopriL 20 MG TAB ONE ×2 (12:28→12:49)
--- NOTE | 2022-11-28 12:28 | RAD REPORT ---
EXAM DESCRIPTION: RAD - Chest Single View - 11/28/2022 12:20 pm CLINICAL HISTORY: CHEST PAIN COMPARISON: No comparisons FINDINGS: Lines: None. Lungs: No evidence of edema or pneumonia. Pleural: No significant pleural effusions or pneumothorax. Cardiac: The heart size is within normal limits. Mediastinum: Within normal limits. Bones: No acute fractures. Fusion hardware in the lower cervical and upper thoracic spine . Other: None IMPRESSION: No acute cardiopulmonary disease.
[2022-11-28] MEDS ORDERED: ENOXAPARIN 80 MG/0.8 ML SQ ONE (12:29)
[2022-11-28] MEDS ORDERED: FAMOTIDINE 20 MG/2 ML VIAL IV ONE (12:29)
[2022-11-28] MEDS ORDERED: HYDROCODONE/APAP 5/325 MG TAB PO PRN (13:04)
[2022-11-28] MEDS ORDERED: ACETAMINOPHEN 325 MG TABLET PO PRN (13:04)
[2022-11-28] MEDS ORDERED: ONDANSETRON 4 MG/2 ML VIAL IV PRN (13:08)
[2022-11-28] MEDS ORDERED: HYDRALAZINE HCL 20 MG/ML VIAL IV PRN (13:13)
--- NOTE | 2022-11-28 13:14 | P.HP ---
Certification for Inpatient Patient admitted to: Observation With expected LOS: <2 Midnights Patient will require the following post-hospital care: None Practitioner: I am a practitioner with admitting privileges, knowledge of patient current condition, hospital course, and medical plan of care. Services: Services provided to patient in accordance with Admission requirements found in Title 42 Section 412.3 of the Code of Federal Regulations Patient History Date of Service: 11/28/22 Reason for admission: Chest pain History of Present Illness: Patient is a 57-year-old female with a past medical history significant for lupus, hypertension, depression, GERD, palpitations who presents with complaint of chest pain located in substernal chest onset this morning. Patient rated pain as 7/10 in severity and described pain as tightness\squeezing in quality. Patient reported associated signs and symptoms of shortness of breath. Patient denies any other signs and symptoms. Symptoms are aggravated or relieved by nothing. Patient decided to present to the hospital due to worsening symptoms. Allergies Penicillins Allergy (Unknown, Unverified 11/28/22 13:08) UNKNOWN Home Medications: Atenolol [Tenormin] 1 tab PO BID 11/28/22 Belimumab [Benlysta] 200 mg IM SEECOM 11/28/22 Duloxetine HCl [Cymbalta] 1 tab PO DAILY 11/28/22 Pantoprazole Sodium [Protonix] 1 tab PO DAILY 11/28/22 hydroCHLOROthiazide [Hydrochlorothiazide] 1 tab PO DAILY 11/28/22 - Past Medical/Surgical History -: HTN -: Depression -: Palpitations -: Lupus -: GERD -: Neck and Back Surgery - Family History Father History Unknown: Yes Mother History Unknown: Yes - Social History Smoking Status: Never smoker Alcohol use: Yes CD- Drugs: No Caffeine use: Yes Place of Residence: Home Review of Systems General: Unremarkable Eyes: Unremarkable ENT: Unremarkable Respiratory: Shortness of Breath Cardiovascular: Chest Pain Gastrointestinal: Unremarkable Genitourinary: Unremarkable Musculoskeletal: Unremarkable Integumentary: Unremarkable Neurological: Unremarkable Lymphatics: Unremarkable Physical Examination - Physical Exam General: Alert, In no apparent distress, Oriented x3, Cooperative HEENT: Atraumatic, PERRLA, Mucous membr. moist/pink, EOMI, Sclerae nonicteric Neck: Supple, 2+ carotid pulse no bruit, No LAD, Without JVD or thyroid abnormality Respiratory: Clear to auscultation bilaterally, Normal air movement Cardiovascular: No edema, Regular rate/rhythm, Normal S1 S2 Capillary refill: <2 Seconds Gastrointestinal: Normal bowel sounds, Soft and benign, Non-distended, No tenderness Musculoskeletal: No clubbing, No swelling, No tenderness Integumentary: No rashes Neurological: Normal speech, Normal tone, Normal affect Lymphatics: No axilla or inguinal lymphadenopathy - Studies Laboratory Data (last 24 hrs) 11/28/22 11/28/22 11/28/22 11:35 11:35 11:35 WBC 8.70 Hgb 15.2 H Hct 43.9 Plt Count 241 PT 10.6 INR 0.96 Sodium 135 L Potassium 3.9 BUN 8 Creatinine 0.67 Glucose 118 H Magnesium 2.2 Total Bilirubin 0.6 AST 9 L ALT 19 Alkaline Phosphatase 79 Lipase 53 Assessment and Plan - Plan -- Chest pain. To rule out ACS. Cardiology consulted. Will trend serial troponins--negative so far. Echocardiogram pending to assess cardiac structures and functions. Telemetry to monitor for any significant arrhythmia. We will await further recommendation from fork truck operator. --GERD. Continue Protonix. --History of palpitations. Continue atenolol. Telemetry to monitor for any significant arrhythmia. Further management per fork truck operator. --Depression. Continue home medication. --Lupus. We will manage pain with current pain medication regimen. -- DVT prophylaxis with Lovenox subQ. Discharge Plan: Home Plan to discharge in: 48 Hours - Advance Directives Does patient have a Living Will: No Does patient have a Durable POA for Healthcare: No - Code Status/Comfort Care Code Status Assessed: Yes Physician Review: Patient Assessed, Agree with Above Assessment and Plan Critical Care: No
[2022-11-28 13:41] LABS: Specific Gravity 1.005 (1.005-1.030); Urine Bacteria <20 /HPF (<20); Urine Bilirubin NEGATIVE (Negative); Urine Blood Negative (Negative); Urine Clarity Turbid (Clear); Urine Color Colorless (Yellow); Urine Glucose NEGATIVE (Negative); Urine Protein NEGATIVE (Negative); Urine RBC <5 /HPF (None Seen); Urine Urobilinogen Normal (Normal)
[2022-11-28 14:16] LABS: Magnesium 2.2 mg/dL (1.6-2.4); Phosphorus 2.9 mg/dL (2.5-4.9)
[2022-11-28 14:21] VITALS: BMI 27.1
[2022-11-28] MEDS ORDERED: POTASSIUM CL SA 10 MEQ TAB PO ONE (15:00)
[2022-11-28] MEDS: atenoloL 25 MG TAB PO SCH (20:46)
[2022-11-29 02:16] VITALS: O2SAT 97
[2022-11-29 03:05] LABS: Absolute Lymphocytes (CBC) 2.7 K/uL (0.7-4.9); Hematocrit 41.4 % (36.0-45.0); Lymphocytes % 30.5 % (15.3-44.8); MCV 90.4 fL (80-100); MPV 9.5 fL (7.6-11.3); Platelets 215 thou/uL (152-406); RBC Red Blood Cell Count 4.58 M/uL (3.86-4.86)
[2022-11-29 03:26] LABS: Potassium 4.3 mEq/L (3.5-5.1)
[2022-11-29] MEDS: ENOXAPARIN 40 MG/0.4 ML SQ SCH ×2 (08:58→09:00)
[2022-11-29] MEDS ORDERED: DULOXETINE 30 MG CAP PO SCH (09:00)
[2022-11-29] MEDS ORDERED: ASPIRIN 81 MG CHEWABLE TABLET PO SCH (09:00)
[2022-11-29] MEDS ORDERED: hydroCHLOROthiazide 12.5 MG CAP PO SCH (09:00)
[2022-11-29] MEDS ORDERED: PANTOPRAZOLE 40MG TABLET PO SCH (09:00)
[2022-11-29] MEDS: atenoloL 25 MG TAB PO SCH (09:00)
[2022-11-29] MEDS ORDERED: REGADENOSON 0.4 MG/5 ML SYR IV ONE (12:30)
--- NOTE | 2022-11-29 13:19 | ECHO ---
HEIGHT: 5 ft 6 in WEIGHT: 168 lb 0 oz DATE OF STUDY: 11/29/[address]: Do Navarro 2-DIMENSIONAL: YES M.MODE: YES DOPPLER: YES COLOR FLOW: YES TDS: YES PORTABLE: YES DEFINITY: BUBBLE STUDY: DIAGNOSIS: CHEST PAIN CARDIAC HISTORY: CATHERIZATION: NO SURGERY: NO PROSTHETIC VALVE: NO PACEMAKER: NO MEASUREMENTS (cm) DIASTOLIC (NORMALS) SYSTOLIC (NORMALS) IVSd 1.2 (0.6-1.2) LA Diam 2.2 (1.9-4.0) LVEF 54% LVIDd 3.6 (3.5-5.7) LVIDs 2.7 (2.0-3.5) %FS 27% LVPWd 1.2 (0.6-1.2) Ao Diam 2.2 (2.0-3.7) 2 DIMENSIONAL ASSESSMENT: RIGHT ATRIUM: NORMAL LEFT ATRIUM: NORMAL RIGHT VENTRICLE: NORMAL LEFT VENTRICLE: NORMAL TRICUSPID VALVE: NORMAL MITRAL VALVE: MILD MITRAL REGURGITATION PULMONIC VALVE: NORMAL AORTIC VALVE: NORMAL PERICARDIAL EFFUSION: NONE AORTIC ROOT: NORMAL LEFT VENTRICULAR WALL MOTION: NORMAL DOPPLER/COLOR FLOW: MILD MITRAL REGURGITATION COMMENTS: 1. NORMAL LEFT VENTRICULAR EJECTION FRACTION 55-60% 2. NORMAL WALL MOTION 3. NORMAL DIASTOLIC FUNCTION 4. MILD MITRAL REGURGITATION TECHNOLOGIST: JAJA RICHARDSON
--- NOTE | 2022-11-29 14:57 | EKG ---
Test Date: 2022-11-28 Test Time: 11:30:56 School Physical Therapist: ARTHUR MEASUREMENT RESULTS: Intervals: Rate: 62 VA: 146 QRSD: 82 QT: 416 QTc: 422 [place]: P: 58 VA: 146 QRS: 35 T: 60 INTERPRETIVE STATEMENTS: Normal sinus rhythm Normal ECG No previous ECG available for comparison Electronically Signed On 11-29-22 14:54:34 CDT by Lior Schroeder
--- NOTE | 2022-11-29 15:22 | P.PN ---
Date of Service: 11/29/22 Subjective: ROS: 10 point ROS as noted above, otherwise negative Physical Exam: GEN: Alert, oriented, NAD HEENT: Normal conjunctiva, sclera anicteric CV: Regular rate and rhythm, no edema Pulm: Nonlabored respirations on room air ABD: Soft, nontender, nondistended MSK: No joint tenderness Integumentary: No rashes Neuro: Normal speech, normal affect vitals reviewed Problem List: Chest pain GERD. History of palpitations Depression. Lupus Chest pain Cardiology consulted. troponins negative x3 echo ordered tentative stress test today GERD. Continue Protonix. History of palpitations. Continue atenolol. Telemetry to monitor for any significant arrhythmia. Further management per animal nutrition teacher. Depression. Continue home medication. Lupus. We will manage pain with current pain medication regimen. VTE: Lovenox Code: Full Dispo: Home
--- NOTE | 2022-11-29 16:02 | RAD REPORT ---
EXAM DESCRIPTION: NM - Rest Stress Cardiac Imaging - 11/29/2022 1:54 pm CLINICAL HISTORY: ischemic eval COMPARISON: Chest Single View dated 11/28/2022 TECHNIQUE: The patient was administered approximately 10.6 mCi of Tc 99m Sestamibi prior to resting SPECT imaging of the heart. The patient was then administered approximately 32.5 mCi of Tc 99m Sestam ibi following exercise or pharmacologic stress. Multiplanar SPECT images were reviewed. FINDINGS: No stress induced ischemic defect is seen to suggest stress induced ischemia. Small fixed defect at the apex/ anterior wall junction is favored to be artifactual, could represent a small pacheco on of ischemia. No other fixed defect is seen to suggest hibernating myocardium or scarred myocardium . The end diastolic volume is 68 ml, the end systolic volume is 19 ml, and the ejection fraction is 72 %. IMPRESSION: No evidence of stress induced myocardial ischemia. Small fixed defect at the apex/ anterior wall junction, favored to be artifactual, but could represen t a small region of ischemia. Low end systolic volume. Please correlate clinically for presence of longstanding hypertension.
[2022-11-29 16:46] VITALS: BP 100/62; TEMP 97.1
--- NOTE | 2022-11-29 20:11 | CON ---
Date of Consultation: 11/29/2022 Reason For Consultation: Chest pain. History Of Present Illness: 57-year-old female, history of hypertension, acid reflux, presented to [facility] emergency room with chest pain, retrosternal, 7/10 in intensity, pressure-like, radiates to her sh oulder along with some mild shortness of breath. No nausea, vomiting, or diaphoresis. Has been ches t pain free since hospitalization. Past Medical History: As outlined above in the HPI. Medications: Refer to reconciliation sheet for detailed list. Allergies: PENICILLIN. Family History: No premature coronary artery disease or cancer. Social History: She does not smoke or drink. Does not use any drugs. Review of Systems: All systems reviewed and they were negative except what mentioned in HPI. Physical Examination: Vital Signs: Reviewed. Head and Neck: Pupils are equal, reactive to light. Intact eye movements. No JVD. No cervical lym phadenopathy. Neck is supple. Thyroid is not enlarged. Lungs: Clear to auscultation bilaterally. No rhonchi, wheezing, or crackles. No accessory muscle u se. Heart: Regular rate and rhythm. No extra sounds. Abdomen: Soft, nontender. Bowel sounds positive. No organomegaly. No masses or hernia. No rigidi ty or rebound. Extremities: No edema, clubbing, or cyanosis. Intact pulses. Skin: No rash. No nodule. Neurologic: Alert, awake, oriented x3. No acute focal deficits appreciated. Investigations: Cardiac enzymes are negative. BUN 10, creatinine 0.8. LDL cholesterol is 136, and hemoglobin is 14.4, and a stress test was negative for ischemia. Assessment And Recommendations: 1.Chest pain with negative troponin, negative stress test, and normal ejection fraction on echo. Th is is not cardiac. No further cardiac recommendations. From Cardiology standpoint, patient can be r eleased and follow up with her primary care physician as an outpatient. 2.Dyslipidemia. Recommend Lipitor 40 mg q.h.s. 3.Hypertension. Blood pressure is controlled. Continue home medications. Cardiology will sign off. SR/MODL Voice ID: [id number] Report ID: [id number]
--- NOTE | 2022-11-30 06:48 | P.DS ---
Admission Date: 11/28/22 Discharge Date: 11/30/22 Disposition: ROUTINE DISCHARGE Discharge Condition: GOOD Reason for Admission: Chest pain Consultations: Cardioloy - Dr. Schroeder Brief History of Present Illness: 57-yo F, PMH: lupus, hypertension, depression, GERD, palpitations Patient who presents with complaint of chest pain located in substernal chest onset this morning. Patient rated pain as 7/10 in severity and described pain as tightness\squeezing in quality. Patient reported associated signs and symptoms of shortness of breath. Patient denies any other signs and symptoms. Symptoms are aggravated or relieved by nothing. Patient decided to present to the hospital due to worsening symptoms. Hospital Course: Problem List: Chest pain GERD. History of palpitations Depression Lupus Patient presented with chest pain, shortness of breath. Troponins were negative x3. BNP normal, D-dimer normal. CXR negative for any acute findings. Echo done 11/28/22 noted normal EF with mild mitral regurgitation Cardiology was consulted. Dr. Schroeder recommended nuclear stress test which was negative. No further ischemic workup during hospitalization. Patients chest pain and shortness of breath resolved prior to discharge without further intervention. She was deemed stable for discharge home. Etiology of her symptoms is unclear, however acute coronary syndrome / SD, infection / mass have been ruled out. Follow up: PCP 3-5 days Cardiology in a few weeks Physical Exam: GEN: Alert, oriented, NAD HEENT: Normal conjunctiva, sclera anicteric CV: Regular rate and rhythm, no edema Pulm: Nonlabored respirations on room air ABD: Soft, nontender, nondistended MSK: No joint tenderness Integumentary: No rashes Neuro: Normal speech, normal affect Vital Signs/Physical Exam: Temp Pulse Resp BP Pulse Ox 97.1 F 62 16 100/62 95 11/29/22 16:00 11/29/22 16:00 11/29/22 16:00 11/29/22 16:00 11/29/22 16:00 Laboratory Data at Discharge: WBC 9.00 thou/uL (4.3-10.9) 11/29/22 02:14 Hgb 14.4 g/dL (12.0-15.0) 11/29/22 02:14 Hct 41.4 % (36.0-45.0) 11/29/22 02:14 Plt Count 215 thou/uL (152-406) 11/29/22 02:14 PT 10.6 SECONDS (9.5-12.5) 11/28/22 11:35 INR 0.96 11/28/22 11:35 Sodium 138 mEq/L (136-145) 11/29/22 02:14 Potassium 4.3 mEq/L (3.5-5.1) 11/29/22 02:14 BUN 10 mg/dL (7-18) 11/29/22 02:14 Creatinine 0.80 mg/dL (0.55-1.02) 11/29/22 02:14 Glucose 121 mg/dL (74-106) H 11/29/22 02:14 Phosphorus 2.9 mg/dL (2.5-4.9) 11/28/22 13:49 Magnesium 2.2 mg/dL (1.6-2.4) 11/28/22 13:49 Total Bilirubin 0.6 mg/dL (0.2-1.0) 11/28/22 11:35 AST 9 U/L (15-37) L 11/28/22 11:35 ALT 19 U/L (13-56) 11/28/22 11:35 Alkaline Phosphatase 79 U/L (45-117) 11/28/22 11:35 Triglycerides 249 mg/dL (<150) H 11/29/22 02:14 Cholesterol 245 mg/dL (<200) H 11/29/22 02:14 HDL Cholesterol 59 mg/dL (40-60) 11/29/22 02:14 Cholesterol/HDL Ratio 4.15 11/29/22 02:14 Lipase 53 U/L (13-75) 11/28/22 11:35 Home Medications: Atenolol [Tenormin] 1 tab PO BID 11/28/22 Belimumab [Benlysta] 200 mg IM SEECOM 11/28/22 Duloxetine HCl [Cymbalta] 1 tab PO DAILY 11/28/22 Pantoprazole Sodium [Protonix] 1 tab PO DAILY 11/28/22 hydroCHLOROthiazide [Hydrochlorothiazide] 1 tab PO DAILY 11/28/22 Physician Discharge Instructions: Patient presented with chest pain, shortness of breath. Troponins were negative x3. BNP normal, D-dimer normal. CXR negative for any acute findings. Echo done 11/28/22 noted normal EF with mild mitral regurgitation Cardiology was consulted. Dr. Schroeder recommended nuclear stress test which was negative. No further ischemic workup during hospitalization. Patients chest pain and shortness of breath resolved prior to discharge without further intervention. She was deemed stable for discharge home. Etiology of her symptoms is unclear, however acute coronary syndrome / SD, infection / mass have been ruled out. Follow up: PCP 3-5 days Cardiology in a few weeks Followup: Marivel Cunningham NP [Primary Care Provider] - Time spent managing pt's care (in minutes): 45
--- NOTE | 2022-11-30 06:49 | TREADPHA ---
DX: ISCHEMIC EVALUATION Date of Study: 11/29/2022 Ht: 5' 6 " Wt: 168 lb 0 oz Consulting Physician: FINESSE MEDICATIONS: TYLENOL, NORCO, ASPIRIN, TENORMIN, CYMBALTA, LOVENOX, APRESOLINE, HYDROCHLOROTHIAZIDE, ZOFRAN, PROTONIX HISTORY: 57 YEAR OLD FEMALE WITH COMPLAINTS OF CHEST PAIN. PHYSICIAL EXAMINATION: RESTING B.P.: 116/68 RESTING H.R.: 59 RESTING EKG: NORMAL SINUS RHYTHM PROTOCOL: PHARMACOLOGIC EXERCISE TIME: 3:30 B.P. AT PEAK STRESS: 119/72 IMPRESSION: LEXISCAN INJECTED. CARDIOLITE INJECTED - SEE NUCLEAR MEDICINE REPORT. PATIENT STATES NAUSEA, HEADACHE, AND SLIGHT CHEST TIGHTNESS. NO SUPRAVENTRICULAR TACHYCARDIA, VENTRICULAR TACHYCARDIA, PREMATURE ATRIAL COMPLEXES, PREMATURE VENTRICULAR COMPLEXES NOTED. NO ELECTROCARDIOGRAM CHANGES WITH LEXISCAN.
== END 2022-11-29 17:33 | disposition home or self-care (01) ==
LOC: ER 11:08 → ERHOLD 13:04 → 2ND 13:42
PROVIDERS: ADMIT Hospitalist; ATTEND Hospitalist
DX: R07.9 Chest pain, unspecified (principal); R00.2 Palpitations; I10 Essential (primary) hypertension; M32.9 Systemic lupus erythematosus, unspecified; F32.A Depression, unspecified; K21.9 Gastro-esophageal reflux disease without esophagitis; Z88.0 Allergy status to penicillin
CPT/HCPCS: 96361; 93005; 93017; 93306; 85025 ×2; 81001; 80048 ×2; 36415 ×2; 83735 ×2; 84100; 85610; 80061; 85379; 80076; 84443 ×2; 83036; 84484 ×3; 84439; 83690; 83880; 71045; 78452; 96372; 96374; 99285; J2785; J7030; A9500; G0378; J1650